=== PATIENT | female | born 1940 | race Caucasian/White ===

== ENCOUNTER 2017-04-17 15:09 | Outpatient (CLI) | payer OTHER | END 2017-04-17 20:45 | disposition home or self-care (01) | LOC: SMA 15:09 | PROVIDERS: ATTEND Family Medicine | DX: Z12.31 Encounter for screening mammogram for malignant neoplasm of breast (principal) | CPT/HCPCS: G0202 ==

== ENCOUNTER 2017-05-07 14:49 | Outpatient (CLI) | payer OTHER | END 2017-05-07 20:01 | disposition home or self-care (01) | LOC: SMA 14:49 | PROVIDERS: ATTEND Family Medicine | DX: R92.1 Mammographic calcification found on diagnostic imaging of breast (principal) | CPT/HCPCS: 77065 ==

== ENCOUNTER 2017-05-22 14:33 | Outpatient (CLI) | payer OTHER | END 2017-05-22 19:41 | disposition home or self-care (01) | LOC: SUS 14:33 | PROVIDERS: ATTEND Family Medicine | DX: R92.8 Other abnormal and inconclusive findings on diagnostic imaging of breast (principal) | CPT/HCPCS: 76642 ==